=== PATIENT | male | born 1995 | race Caucasian/White ===

== ENCOUNTER 2018-12-21 00:43 | Emergency (ER) | payer MEDICAID ==
[~2018-12-21] VITALS: Ht 172.7 cm; Wt 77.9 kg
[2018-12-21 00:54] VITALS: BP 123/71; PULSE 70; RESP 18; Ht 172.7 cm; Wt 77.9 kg
--- NOTE | 2018-12-21 01:46 | ERD ---
ER Documentation Chief Complaint Chief Complaint upper lip lac, also c/o pain right lower leg, playing soccer around 2230 HPI This is a 23-year-old male who presents here in emergency department with complaints of left upper lip laceration, right lower extremity pain. Stated that he was accidentally elbowed by another player, fell, landed on his right lower extremity. Unable to walk due to pain. No loss of consciousness. Denies headache, head injury, loss of consciousness, dizziness, neck pain, neck stiffness, throat pain, difficulty swallowing, difficulty breathing lying flat, shoulder pain, chest pain, back pain, abdominal pain, nausea, vomiting, constipation, diarrhea, urinary symptoms, loss of bowel and bladder control, trauma, injury, falls, difficulty walking due to pain, numbness or tingling sensation, calf pain, recent travel, recent major surgery in the last 3 weeks, calf pain, recent long travel, recent exposure to any illness, recent antibiotic use in the last 3 months, fever, chills, seizures. Past medical history: Surgical history: Social: Denies smoking, use of alcoholic beverages, use of illegal drugs. ROS All systems reviewed and are negative except as per history of present illness. Medications Home Meds Active Scripts Ibuprofen* (Motrin*) 800 Mg Tab, 800 MG PO Q6H PRN for PAIN AND OR ELEVATED TEMP, #30 TAB Prov:SILVA GUDIO 12/21/18 Amoxicillin/Potassium Clav (Amox-Clav 875-125 mg Tablet) 875-125 mg Tab, 1 TAB PO BID for 10 Days, #20 TAB Prov:SILVA GUIDO F 12/21/18 Reported Medications [none] No Conflict Check 11/25/12 Allergies Allergies: Coded Allergies: No Known Allergies (Verified Allergy, Mild, 11/25/12) PMhx/Soc History of Surgery: No Anesthesia Reaction: No Hx Neurological Disorder: No Hx Respiratory Disorders: No Hx Cardiac Disorders: No Hx Psychiatric Problems: No Hx Miscellaneous Medical Probl: Yes (DENIES MEDICAL PROBLEMS) Hx Alcohol Use: No Hx Substance Use: No Hx Tobacco Use: No Physical Exam Vitals Physical Exam Const: No acute distress Head: Atraumatic. Scalp is intact. Eyes: Normal Conjunctiva. No visual field loss. There is no pain in eye movement. Extraocular movement of his eyes are within normal limits. ENT: Normal External Ears, Nose and Mouth. Bilateral ears: No ear laceration. TM are not erythematous. No bleeding. No discharge. No hearing loss. No mastoid tenderness. No foreign body seen. Nose: Midline without deviation and without deformity. No septal hematoma. Throat/lips: Left upper lip has a laceration measuring approximately 1.2 cm in length. Left upper lip/i nner has a laceration measuring approximately 1 cm in length. Uvula is in midline and nondisplaced. Tonsils are +1 bilaterally without redness and without exudates. Tolerating secretions. Patent airway. Speaks full and clear sentences. Bilateral jaw: No deformity. No swelling. No discoloration. Good and full range of motion. Neck: Full range of motion. No meningismus. C-spine is in midline with good and full range of motion and has no swelling/deformity/bulging/point of tenderness. Resp: Clear to auscultation bilaterally. Chest area: No signs of trauma. Symmetrical chest. No crepitus. No signs of punctured lungs. Cardio: Regular rate and rhythm, no murmurs Abd: Soft, non tender, non distended. Normal bowel sounds. Negative Frazier sign. Skin: No petechiae or rashes Back: No midline or flank tenderness. T-spine/L-spine are midline with good and full range of motion and has no swelling/deformity/bulging/point of tenderness. Bilateral hips: Unremarkable. No saddle anesthesia. Ext: No cyanosis, or edema. Right tibia and fibula: Tenderness to palpation but starts on the medial area and extends to distal area. Right ankle has swelling and tenderness but has full and good range of motion. Right foot: Tenderness to dorsal area. No obvious deformity. Has mild swelling. Right toes has good and full range of motion. Right pedal pulses within normal limits. Capillary refills to right lower extremity is less than 2 seconds. Left lower extremity is unremarkable. Bilateral upper extremities are unremarkable. No neurovascular deficit. Neur: Awake and alert. No neurological deficits. Psych: Normal Mood and Affect Results 24 hrs Current Medications Medications Dose Sig/Edison Start Time Status Last (Trade) Ordered Route PRN Stop Time Admin Dose Reason Admin Diphtheria/ 0.5 ml ONCE ONCE 12/21/18 DC 12/21/18 Tetanus/Acell IM* 02:00 12/21/18 02:10 Pertussis 02:01 (Adacel) 1 tab ONCE ONCE 12/21/18 DC 12/21/18 Acetaminophen PO 02:00 12/21/18 02:08 / 02:01 Hydrocodone Bitart ([place] ()) Lidocaine 20 ml ONCE ONCE 12/21/18 DC (Xylocaine SC 02:00 12/21/18 1% (Mdv) 20 02:01 ml) 875 mg ONCE ONCE 12/21/18 DC 12/21/18 Amoxicillin/ PO 03:30 12/21/18 03:49 Clavulanate 03:31 Potassium (Augmentin) Ondansetron 4 mg ONCE STAT 12/21/18 DC 12/21/18 HCl (Zofran ODT 03:50 12/21/18 03:55 Odt) 03:51 Procedures/MDM Diagnostic tests: X-ray of the right tibia and fibula: No evidence of fracture. X-ray of the right ankle:No evidence of fracture. X-ray of the right foot: No evidence of fracture. Treatment: Adacel IM. Augmentin. [place]. I informed the patient that I am not a plastic surgeon and that scarring will be very visible even after the laceration repair. He verbalized understanding. Had a verbal consent from the patient. Procedure: Laceration repair to left upper lip. Sterile technique was observed. Left upper lip has a laceration measuring approximately 1.2 cm in length. Betadine prep. Lidocaine 1% 1 cc subcu. Copious/pressure irrigation with saline and Betadine. Wound was explored. No foreign body seen. Vicryl 4-0 x3 simple interrupted suture to inferior area. Ethilon 5-0 x2 simple interrupted sutures. Left upper lip/inner has a laceration measuring approximately 1 cm in length. Betadine prep. Lidocaine 1% plain 5 cc subcu. Copious/pressure irrigation with saline and Betadine. Wound was explored. No foreign body seen. Vicryl 4-0 x3 simple interrupted sutures. Re-evaluation: No active bleeding. Good and full range of motion of bilateral jaw. C-spine is in midline with good and full range of motion and has no swelling/bulging/point of tenderness. No neurological deficits. Differential diagnosis I have low suspicion for intracranial hemorrhage, skull fracture, epidural hematoma, subdural hematoma, [place], septal hematoma, C-spine fracture, open fracture, compartment syndrome, Lisfranc fracture, hemorrhage. Final diagnosis: Multiple contusion, lip laceration, ankle contusion secondary to sports injury. Prescription: Augmentin. Motrin. Follow-up with PCP in the next 24-48 hours. Come back in 2 days for a wound check. Come back in 5 to 7 days for suture removal. Come back here in the emergency department for any new symptoms or any worsening symptoms. All questions and concerns were answered. Patient and family members verbalized understanding and agreed with plan of care. Hemodynamically stable on discharge. Departure Diagnosis: Primary Impression: Laceration Additional Impressions: Lip laceration Multiple contusions Condition: Stable Additional Instructions: Follow-up with PCP in the next 24-48 hours. Come back in 2 days for a wound check. Come back in 5 to 7 days for suture removal. Come back here in the emergency department for any new symptoms or any worsening symptoms. SILVA GUIDO Dec 21, 2018 01:46
[2018-12-21] MEDS ORDERED: LIDOCAINE 1% (MDV) 20 ML INJ SC ONE (02:00)
[2018-12-21] MEDS ORDERED: DIPHTH/TET/ACEL PERTUSS (ADULT) 0.5 ML VIAL IM* ONE (02:00)
[2018-12-21] MEDS ORDERED: HYDROCODONE/APAP (10/325) TAB PO ONE (02:00)
[2018-12-21] MEDS ORDERED: AMOXICILLIN/CLAV 875 MG TAB PO ONE (03:30)
[2018-12-21] MEDS ORDERED: AMOX1TAB10 PO (03:42)
[2018-12-21] MEDS ORDERED: IBUP800T48 PO (03:42)
[2018-12-21] MEDS ORDERED: ONDANSETRON (ODT) 4 MG TAB ODT STA (03:50)
== END 2018-12-21 05:18 | disposition home or self-care (01) ==
LOC: FTE 00:43
DX: S01.511A Laceration without foreign body of lip, initial encounter (principal); T14.8XXA Other injury of unspecified body region, initial encounter; W18.39XA Other fall on same level, initial encounter; Y92.322 Soccer field as the place of occurrence of the external cause; Z23 Encounter for immunization
CPT/HCPCS: 12011; 73590; 73610; 73630; 90471; 90715; Z7502; Z7610